=== PATIENT | male | born 1980 | race Caucasian/White ===

== ENCOUNTER 2016-06-20 09:21 | Inpatient (IN) ==
[2016-06-20] MEDS ORDERED: NS 1,000 ML IV ONE (10:18)
[2016-06-20 10:35] LABS: BASO% 0.2 % (0.0-0.8); EOS# 0.03 X1000 (0.0-0.7); EOS% 0.1 % (0.0-10.0); HEMATOCRIT 44.1 % (42.0-52.0); HEMOGLOBIN 14.8 g/dL (14.0-18.0); IMM GRAN# 0.06 X1000 (0.0-0.04); IMM GRAN% 0.2 % (0.0-0.5); LYMPH# 1.13 X1000 (1.2-3.4); MANUAL DIFF NEEDED? NO; MCH 29.6 PG (27-31); MCHC 33.6 g/dL (33-37); MCV 88.2 FL (81-99); MONO# 0.83 X1000 (0.11-0.59); NEUT% 92.5 % (42.2-75.2); PLT 285 X1000 (130-400)
--- NOTE | 2016-06-20 10:36 | Diag Imaging Result Document ---
PROCEDURE NAME: CHEST-2 VIEWS - 06/20/2016 CHEST, 2 VIEWS: COMPARISON: No comparison exam. FINDINGS: Heart size is normal. Inspiration is mildly shallow. The lungs appear clear. There is no pleural effusion or pneumothorax identified. IMPRESSION: Mildly shallow inspiration. No other evidence of acute disease.
[2016-06-20 10:50] LABS: AGAP 13; ALBUMIN 4.4 g/dL (3.5-5.0); ALKALINE PHOSPHATASE 64 U/L (32-122); BUN 11 mg/dL (8-22); CHLORIDE 103 mmol/L (98-107); COSMO 276; GOT 21 U/L (10-34); GPT 42 U/L (10-44); POTASSIUM 4.3 mmol/L (3.5-5.1); SODIUM 138 mmol/L (136-145); TCO2 23 mmol/L (25-35); TOTAL PROTEIN 7.3 g/dL (6.3-8.3)
[2016-06-20] MEDS ORDERED: [UNRECOGNIZED DRUG - OTHER] IV ONE (10:59)
[2016-06-20] MEDS ORDERED: ZOSYN IV ONE (10:59)
[2016-06-20] MEDS ORDERED: VANCOMYCIN 1 GM/NS 1 GM/250 ML IVPB IV ONE (10:59)
[2016-06-20 11:10] LABS: BE -0.2 mmoll (-3.0-3.0); BLOOD TYPE ARTERIAL; METHB 1.5 % (0.0-1.5); O2(CT) 18.5 mL/dL (15.0-23.0); PCO2(98.6) 37 mmHg (35-45); PO2(98.6) 65 mmHg (60-100); SAMPLE BLOOD; THB 14.2 g/dL (11.5-17.4); pH(98.6) 7.42 (7.35-7.45)
[2016-06-20 11:12] LABS: DRAW SITE L RADIAL; MODALITY ROOM AIR
[2016-06-20 11:13] LABS: ALLEN TEST YES
[2016-06-20] MEDS ORDERED: NS 1,000 ML ONE (11:18)
[2016-06-20] MEDS ORDERED: MOTRIN PO ONE (11:26)
[2016-06-20 11:50] LABS: INR 1.04 (0.86-1.15); PROTIME 13.9 Seconds (12.1-15.5); PTT PL 24.1 Seconds (22.6-43.9)
[2016-06-20 12:44] LABS: URINE CULTURE PL NEEDED? NO
[2016-06-20] MEDS ORDERED: ZOFRAN IV PRN (13:09)
[2016-06-20] MEDS: NS 1,000 ML IV ONE ×2 (13:09→20:46)
[2016-06-20] MEDS ORDERED: TYLENOL PO PRN (13:09)
--- NOTE | 2016-06-20 13:10 | PROVIDER DOCUMENTATION ---
This chart was entered by Chanel Fajardo Scribe, acting as scribe for Theodore Gonzalez PA. HPI-Respiratory General - General Chief Complaint: Cold Symptoms Stated Complaint: COUGH/CONGESTION/N/V/D Time Seen by Provider: 06/20/16 10:04 Source: patient Allergies/Adverse Reactions: Patient Allergies Allergy/AdvReac Type Severity Reaction Status Date / Time No Known Allergies Allergy Verified 04/14/15 23:16 Home Medications: Home Medication List Medication Instructions Recorded Confirmed Last Taken Type Hydrocodone/Acetaminophen [[place] 1 each PO Q4-6H PRN PRN 04/14/15 04/14/1504/14 History 5-325 Tablet] Ondansetron HCl [Zofran] 1 - 2 tab PO Q6H PRN PRN #10 tablet 04/15/15 Unknown Rx Pantoprazole [Protonix] 40 mg PO DAILY@0700 #30 tablet 04/15/15 Unknown Rx Tramadol [Ultram] 50 mg PO Q6H PRN PRN #30 tablet 04/15/15 Unknown Rx - History of Present Illness-Resp Nature of Presenting Problem: Pt is 36 y/o M presents to the ED with cough and mild SOB. Pt states symptoms have been present for 2 mths. Pt states going to urgent care and urgent care prescribed mucinex. Pt states this am having F. Pt states one episode of V. Quality of Pain: reports: tightness Severity in ED: reports: mild Onset/Duration: reports: other (2 mths) Timing: reports: still present Exposure: reports: unknown cause Cough Quality/Degree: reports: moderate Episode Frequency: frequent episodes Current Respiratory Medication Therapy: Initiated see nurses note Modifying Factors: improves with: nothing Associated Symptoms: reports: cough, fever/chills (F), shortness of breath, other (vomiting). denies: chest pain/soreness, dizziness, earache, facial pain , flu-like symptoms, headache, heart racing, hurts to breathe, hyperventilating , lightheadedness, muscle/bodyaches, nasal congestion, nasal drainage, sinus pain, short of breath, sore throat, sweaty, wheezing Similar Symptoms Previously?: Yes Recently seen or treated by another doctor?: Yes Review of Systems - Adult - REVIEW OF SYSTEMS - ADULT Constitutional: reports: fever. denies: chills Eyes: denies: blurred vision, double vision Ears, Nose, Mouth & Throat: denies: ear pain, nose pain, throat pain Cardiovascular: reports: irregular heart rate (tachy). denies: chest pain, heart murmur Respiratory: reports: cough, shortness of breath. denies: wheezing Gastrointestinal: reports: vomiting. denies: abdominal pain, diarrhea, nausea Genitourinary: denies: dysuria, hematuria Musculoskeletal: denies: bone pain, joint pain, neck pain Integumentary: denies: hives, mole changes, rash Neurological: denies: dizziness/vertigo, headache/migraines Psychiatric: reports: no symptoms reported Endocrine: reports: no symptoms reported Hematologic/Lymphatic: reports: no symptoms reported Allergic/Immunologic: reports: no symptoms reported All Other Systems: Reviewed and Negative Past History - Adult - PAST MEDICAL HISTORY-ADULT Review of Records: reports: Nursing Assessment Review, Medications Reviewed, Social history reviewed & non-contributory. Major Childhood Illnesses: reports: denies history Cardiovascular: reports: denies history Respiratory: reports: denies history Gastrointestinal: reports: denies history Obstetrical/Gynecological: reports: denies history Genitourinary: reports: denies history Musculoskeletal: reports: denies history Neurological: reports: denies history Psychiatric: reports: anxiety Endocrine/Immune: reports: denies history Other Conditions: reports: denies history - PRIOR SURGERIES/PROCEDURES Surgical/Procedure History: reports: reviewed, not pertinent - IMMUNIZATION STATUS Childhood Immunizations: See Nurse Assessment Flu Vaccine: See Nurse Assessment - FAMILY HISTORY Family History: reviewed, not pertinent - SOCIAL HISTORY Smoking: denies Substance Use: denies Living Situation: family Physical Exam-General - PHYSICAL EXAM-ADULT Initial Vital Signs Reviewed: Yes - CONSTITUTIONAL General Appearance: appears well, alert, no apparent distress - EYES Eyes: PERRL/EOMI, pink conjunctivae - HEAD, EARS, NOSE, MOUTH & THROAT HENMT: normocephalic/atraumatic, moist mucous membranes, normal ENT inspection - NECK Neck: supple, normal inspection - RESPIRATORY Respiratory: chest non-tender, lungs clear, rhonchi (bilateral) - CARDIOVASCULAR Cardiovascular: normal peripheral pulses, tachycardia - GASTROINTESTINAL (ABDOMEN) Abdominal Exam: normal bowel sounds, non tender, soft - LYMPHATIC Lymphatic: no adenopathy - MUSCULOSKELETAL Back Exam: normal inspection, no CVA tenderness, no vertebral tenderness Extremity: normal range of motion, non-tender - SKIN Integumentary: normal color, normal turgor, warm/dry - NEUROLOGIC Neurologic: grossly normal, no motor/sensory deficits - PSYCHIATRIC Psych/Mental Status: normal mood/affect, oriented x 3 Progress - PLAN OF CARE/RESULTS Progress/Plan/Lab Results: Vital Signs - 8 hr 06/20/16 09:35 06/20/16 13:02 Temperature 100.7 F H 98.3 F Pulse Rate 112 H 93 H Respiratory Rate 20 18 Blood Pressure 113/77 110/73 O2 Sat by Pulse Oximetry 94 L 95 Laboratory Results - last 24 hr 06/20/16 06/20/16 06/20/16 10:27 10:27 10:51 WBC 28.07 H RBC 5.00 Hgb 14.8 Hct 44.1 MCV 88.2 MCH 29.6 MCHC 33.6 RDW Std Deviation 12.9 Plt Count 285 MPV 10.0 Immature Gran % (Auto) 0.2 Neut % (Auto) 92.5 H Lymph % (Auto) 4.0 L Moca % (Auto) 3.0 Eos % (Auto) 0.1 Baso % (Auto) 0.2 Immature Gran # (Auto) 0.06 H Neut # (Auto) 25.97 H Lymph # (Auto) 1.13 L Moca # (Auto) 0.83 H Eos # (Auto) 0.03 Baso # (Auto) 0.05 PT INR APTT (Factor Assay) Specimen Type ARTERIAL Sample Site L RADIAL pH 7.42 pCO2 37 pO2 65 HCO3 24.6 Base Excess -0.2 Oxyhemoglobin 92.9 L ABG O2 Sat (Calculated) 18.5 ABG O2 Saturation 97.0 ABG Carboxyhemoglobin 2.60 H ABG Methemoglobin 1.5 Glen Test YES A-a O2 Difference 38.0 Total Hemoglobin 14.2 Lactate 1.10 Blood Gas Modality ROOM AIR FiO2 % 21.0 Sodium 138 Potassium 4.3 Chloride 103 Carbon Dioxide 23 L Anion Gap 13 BUN 11 Creatinine 0.7 Estimated GFR/1.73 m2 > 60 BUN/Creatinine Ratio 16 Glucose 117 H Calculated Osmolality 276 Calcium 9.0 Magnesium Total Bilirubin 0.70 AST 21 ALT 42 Alkaline Phosphatase 64 Total Protein 7.3 Albumin 4.4 Globulin 3.0 Albumin/Globulin Ratio 2.0 Plasma Lactate 05/07/0206/20/16 06/20/16 11:15 11:15 11:15 WBC RBC Hgb Hct MCV MCH MCHC RDW Std Deviation Plt Count MPV Immature Gran % (Auto) Neut % (Auto) Lymph % (Auto) Moca % (Auto) Eos % (Auto) Baso % (Auto) Immature Gran # (Auto) Neut # (Auto) Lymph # (Auto) Moca # (Auto) Eos # (Auto) Baso # (Auto) PT 13.9 INR 1.04 APTT (Factor Assay) 24.1 Specimen Type Sample Site pH pCO2 pO2 HCO3 Base Excess Oxyhemoglobin ABG O2 Sat (Calculated) ABG O2 Saturation ABG Carboxyhemoglobin ABG Methemoglobin Glen Test A-a O2 Difference Total Hemoglobin Lactate Blood Gas Modality FiO2 % Sodium Potassium Chloride Carbon Dioxide Anion Gap BUN Creatinine Estimated GFR/1.73 m2 BUN/Creatinine Ratio Glucose Calculated Osmolality Calcium Magnesium 1.7 Total Bilirubin AST ALT Alkaline Phosphatase Total Protein Albumin Globulin Albumin/Globulin Ratio Plasma Lactate 1.5 Orders Category Date Time Status Saline Loc NOW Care 06/20/16 10:18 Active CHEST-2 VIEWS [RAD] Stat Exams 06/20/16 10:04 Completed THORAX/ABDOMEN/PELVIS [CT] Stat Exams 06/20/16 10:57 Taken ABG [RESP] Routine Lab 06/20/16 10:51 Completed BLOOD CULTURE [BLDCUL] Stat Lab 06/20/16 10:57 Ordered CBC WITH DIFF [HEME] Stat Lab 06/20/16 10:27 Completed CMP [COMPREHENSIVE METABOLIC PANEL] [CHEM] Stat Lab 06/20/16 10:27 Completed LACTATE, PLASMA [CHEM] Stat Lab 06/20/16 11:15 Completed MAGNESIUM [CHEM] Stat Lab 06/20/16 11:[address]IME WITH INR [address] [COAG] Stat Lab 06/20/16 11:[address] [COAG] Stat Lab 06/20/16 11:15 Completed urinalysis [URINALYSIS PL W/POSS RFLX CULT] [URINALYSIS Lab 06/20/16 11:40 Received ] Stat 0.9% Sodium Chloride Inj [Ns] 1,000 ml Med 06/20/16 11:18 Discontinued .ROUTE As Directed 0.9% Sodium Chloride Inj [Ns] 1,000 ml Med 06/20/16 10:18 Discontinued IV 999 mls/hr Ibuprofen [Motrin] Med 06/20/16 11:26 Discontinued 800 mg PO NOW ONE Piperacil/Tazobact 3.375 gm/Ns [Zosyn 3.375 gm/Ns] Med 06/20/16 10:59 Discontinued 3.375 mg in 0.05 ml IV NOW Vancomycin 1 gm/Ns Med 06/20/16 10:59 Discontinued 1 gm in 250 ml IV NOW Result Diagrams: 06/20/16 10:27 06/20/16 10:27 - XRAY 1 XRAY Study: Chest Impression: Normal XRAY Interpretation: NAD ([place]) - CONSULTS/PCP/HOSPITALIST Notification #1 *Consult/PCP/Hospitalist*: Dr. De Leon Time Discussed: 13:08 Consult Disposition: Admit Departure - Departure Time of Disposition Decision: 13:08 DIAGNOSIS: Bronchitis, Fever and chills Leukocytosis Qualifiers: Leukocytosis type: other Qualified Code(s): D72.828 - Other elevated white blood cell count Nausea & vomiting Qualifiers: Vomiting type: unspecified Vomiting Intractability: non-intractable Qualified Code(s): R11.2 - Nausea with vomiting, unspecified Disposition: ADMITTED INPATIENT 09 Certified Medical Emergency: Emergent Condition: Stable Referrals and Follow-Ups: None,PCP [Primary Care Provider] - - Critical Care Note This patient required my direct & personal management of CC.: No Attestation - Physician/ MIKEY Attestation Patient care was provided by Advanced Practice Provider:: Yes Advanced Practice Provider:: Theodore Gonzalez Advanced Practice Provider documentation review:: The Mid-level provider documentation, treatment plan and medical decision making was reviewed by the physician who agrees with all treatment and medical decision making by the MLP. This chart was documented by the indicated scribe, (Chanel Fajardo Scribe) and accurately reflects the services I performed and decisions made by me, Theodore Gonzalez PA, as attested by the provider's signature.
[2016-06-20 13:26] LABS: BILIRUBIN URINE NEGATIVE (NEGATIVE); BLOOD URINE NEGATIVE (NEGATIVE); COLOR YELLOW; GLUCOSE URINE NEGATIVE (NEGATIVE); LEUKOCYTES URINE TRACE (NEGATIVE); NITRITE URINE NEGATIVE (NEGATIVE); PROTEIN URINE NEGATIVE (NEGATIVE); SP GRAVITY URINE 1.005; UROBILINOGEN URINE NORMAL
[2016-06-20 13:32] LABS: URINE EPITHELIAL CELLS <10 /HPF (<10); URINE RBC <10 /HPF (<10); URINE WBC <10 /HPF (<10)
[2016-06-20 13:33] LABS: CLARITY CLOUDY (CLEAR); URINE SOURCE VOIDED
--- NOTE | 2016-06-20 13:43 | Diag Imaging Result Document ---
PROCEDURE NAME: THORAX/ABDOMEN/PELVIS - 06/20/2016 CT THORAX WITH CONTRAST: Exam performed with intravenous contrast. A dose-reduction protocol was used. COMPARISON: No comparison exam. FINDINGS: The lungs appear clear. There is no consolidation, pleural effusion, or pneumothorax identified. There are nonspecific [id number] mediastinal lymph nodes. IMPRESSION: 1. Nonspecific small to borderline mediastinal lymph nodes. 2. No other evidence of acute disease. No pneumonia. CT ABDOMEN AND PELVIS WITH IV CONTRAST ONLY: Exam performed with intravenous contrast only per request of the referring provider. A dose-reduction protocol was used. No comparison exam. The liver is mildly prominent in size but, otherwise, unremarkable. There are no focal liver lesion identified. There are no abnormalities of the spleen, adrenal glands, or pancreas identified. There are no calcified gallstones or pericholecystic inflammatory changes identified. The bilateral kidneys enhance homogeneously. There is no hydronephrosis. There are no substantially enlarged lymph nodes identified. There is no evidence of bowel obstruction. The appendix does not appear inflamed. There is a small fat-containing umbilical hernia. There is no bowel-containing hernia identified. There is no abnormal bowel wall thickening identified. There is no free air, free fluid, or abscess identified. IMPRESSION: 1. Mildly prominent liver, which otherwise is unremarkable. No focal liver lesions. 2. No other evidence of acute disease.
[2016-06-20] MEDS ORDERED: VANCOMYCIN IV PER PHARMACY MISC SCH (19:15)
[2016-06-20] MEDS ORDERED: PHENERGAN LIQUID PO PRN (19:18)
[2016-06-20] MEDS: DUONEB (A & A) INH SCH ×2 (19:56→23:28)
--- NOTE | 2016-06-20 20:23 | HISTORY AND PHYSICAL ---
CHIEF COMPLAINT: Cough and vomiting. HISTORY OF PRESENT ILLNESS: This is a 36-year-old male with no prior health history who presented to the emergency room complaining of a nonproductive cough that has been present for about 2 months. He stated that the cough started after having respiratory illness. The cough was getting better then he as well as everybody in his family had bronchitis and/or the flu. Cough got worse, he ran a fever, he stated all symptoms subsided except for the cough. He throughout the cough has remained nonproductive. He does state that last night prior to coming to the emergency room he did have a subjective fever and chills. He had 1 episode of vomiting. Chest x-ray as well as CT of the thorax, abdomen and pelvis revealed no acute processes. He was noted to have a white blood cell count of 28. In the emergency room blood cultures were drawn. He was given vancomycin and Zosyn and admitted for further evaluation and treatment. PAST MEDICAL HISTORY: Denies. PAST SURGICAL HISTORY: Denies. ALLERGIES: No known drug allergies. SOCIAL HISTORY: He denies alcohol, tobacco, or illicit drug use. He works for the [employer]. He is with 3 children. HOME MEDICATIONS: None. REVIEW OF SYSTEMS: A 14 point review of systems is discussed with patient with pertinent positives stated in the HPI. He denied chest pain, palpitations, dizziness, syncope, PND, orthopnea, black or bloody vomitus, black or bloody stools, any diarrhea, constipation, hematuria, dysuria, frequency, urgency. PHYSICAL EXAMINATION: GENERAL: This is a 36-year-old male who is sitting in the bed with no distress. VITAL SIGNS: Blood pressure is 110/73 with a heart rate of 90 respirations are 18, temperature is 98.3 degrees oral with room air saturations of 95-98%. HEENT: Head is normocephalic, atraumatic. Pupils equal, round, react to light. EOMs are intact. Sclerae anicteric. Mucous membranes are moist. NECK: Supple with trachea midline. CARDIOVASCULAR: Regular rate and rhythm. S1 and S2 appreciated. PULMONARY: He has some rhonchi that clear to cough with no increased work of breathing noted. GASTROINTESTINAL: Abdomen is soft, nontender, nondistended. Bowel sounds in all 4 quadrants. BACK: No CVAT. No spine tenderness. MUSCULOSKELETAL: Good range of motion of joints. NEUROLOGIC: He is alert and oriented x3 with cranial nerves 2-12 grossly intact. DIAGNOSTICS: WBC is 28 with a hemoglobin of 14.8, hematocrit 44.1 and platelets of 285,000. Sodium is 138, potassium 4.3, BUN 11, creatinine 0.7 with a glucose of 117. Urinalysis is essentially negative. Chest x-ray and CT of the chest, abdomen and pelvis revealed no acute abnormality. ASSESSMENT AND PLAN: 1. Persistent cough. 2. Leukocytosis. 3. Fever. He will be admitted to the hospital, be placed on telemetry. Will give IV hydration. DuoNeb q.4 hours. Will continue vancomycin and will add azithromycin for mycoplasma coverage, will give sputum culture. We will trend his labs. Further treatments pending hospital course. Dictated by MALIHA Black for Brice De Leon MD cc: MALIHA Black MD
[2016-06-20] MEDS: VANCOMYCIN 1,900 MG in NS 500 ML IV SCH (20:45)
[2016-06-20] MEDS: ZITHROMAX PO SCH (20:45)
[2016-06-20] MEDS: SOLU-MEDROL IV SCH (20:45)
[2016-06-21] MEDS: DUONEB (A & A) INH SCH ×3 (03:07→11:16)
[2016-06-21] MEDS: SOLU-MEDROL IV SCH (04:29)
[2016-06-21 06:32] LABS: HEMATOCRIT 40.5 % (42.0-52.0); HEMOGLOBIN 13.2 g/dL (14.0-18.0); MCH 29.3 PG (27-31); MCHC 32.6 g/dL (33-37); MPV 10.7 FL (7.4-10.4); RBC 4.5 XMIL (4.7-6.1)
[2016-06-21 06:56] LABS: AGAP 12; ALBUMIN 3.9 g/dL (3.5-5.0); ALKALINE PHOSPHATASE 67 U/L (32-122); BUN 8 mg/dL (8-22); CALCIUM 8.9 mg/dL (8.8-10.2); CHLORIDE 106 mmol/L (98-107); COSMO 280; GOT 13 U/L (10-34); GPT 33 U/L (10-44); POTASSIUM 4.2 mmol/L (3.5-5.1); SODIUM 139 mmol/L (136-145); TCO2 21 mmol/L (25-35); TOTAL PROTEIN 6.9 g/dL (6.3-8.3)
[2016-06-21] MEDS ORDERED: PRILOSEC PO SCH (07:00)
[2016-06-21 08:10] VITALS: BP 124/70
[2016-06-21] MEDS: VANCOMYCIN 1,900 MG in NS 500 ML IV SCH (09:39)
[2016-06-21] MEDS: ZITHROMAX PO SCH (09:39)
--- NOTE | 2016-06-22 06:22 | DISCHARGE SUMMARY ---
ADMISSION DATE: 06/20/2016 DISCHARGE DATE: 06/21/2016 DISCHARGE DIAGNOSES: 1. Cough, improved. 2. Leukocytosis, resolved. WBC count dropped from 18 down to 10. 3. Recent pneumonia. 4. Fever, resolved. CONSULTATIONS: None. PROCEDURES: None. BRIEF HOSPITAL COURSE: The patient is a 36-year-old male, who was admitted as on the history of present illness and treated in the usual fashion. Placed on antibiotics. His white count tremendously improved after 1 dose. His cough improved with Solu-Medrol. On discharge, the patient is awake, alert. He is having no distress. He is ambulating in the bhatia without any difficulty. DISPOSITION: The patient will be discharged home. He will continue azithromycin and doxycycline at home, as well as a Medrol Dosepak. Will be discharged home with a prescription for albuterol inhaler. He will followup with his primary care in 1-2 weeks or sooner should symptoms worsen or return. Certainly expect this be a mycoplasma cause. Discussed with he and his . Further orders as needed. cc: Brice De Leon MD
== END 2016-06-21 12:44 | disposition home or self-care (01) ==
LOC: P.ED 09:21 → P.MEDSURG 14:47
PROVIDERS: ATTEND Family Medicine